=== PATIENT | male | born 1965 | race Native Hawaiian/Other Pacific Islander ===

== ENCOUNTER 2021-06-12 08:20 | Outpatient (CLI) | payer OTHER ==
[~2021-06-12] VITALS: Ht 167.6 cm; Wt 108.9 kg
== END 2021-06-12 20:31 | disposition home or self-care (01) ==
LOC: INF 08:20
PROVIDERS: ATTEND Internal Medicine
DX: Z23 Encounter for immunization (principal); U07.1 COVID-19
CPT/HCPCS: 96365; M0244